=== PATIENT | male | born 1945 | race African-American/Black ===

== ENCOUNTER → 2021-07-26 09:35 | Outpatient (CLI) | payer MEDICARE, OTHER, SELFPAY ==
--- NOTE | ~2021-07-26 | CT_ITS ---
EXAMINATION: CT sinus wo con DATE: 07/26/2021 09:51 INDICATION: Chronic sinusitis TECHNIQUE: Computed tomography (CT) of the paranasal sinuses was performed without intravenous contra st. The dose-length product was 273.81 mGy-cm. Automated exposure control and iterative reconstructio n technique were employed. COMPARISON: None FINDINGS: There is extensive mucosal thickening of the frontal, ethmoid, sphenoid and maxillary sinus es. There is occlusion of the ostiomeatal units. Rightward nasal septal deviation. There is mild muco periosteal reaction throughout the sinuses. IMPRESSION: 1. Pansinusitis, likely chronic. Reviewed, dictated and finalized at location B. LE DATABASE ANALYST
== END ==
PROVIDERS: PCP Family Medicine; Visit Provider Otolaryngology
DX: J32.9 Chronic sinusitis, unspecified (principal)
CPT/HCPCS: 70486

== ENCOUNTER 2021-09-11 08:26 | Outpatient (CLI) | payer MEDICARE, OTHER, SELFPAY ==
--- NOTE | 2021-09-11 08:32 | ECG_ITS ---
Measurements Intervals [place] Rate: 59 P: 18 AR: 187 QRS: -41 QRSD: 106 T: 22 QT: 435 QTc: 432 Interpretive Statements SINUS BRADYCARDIA RIGHTWARD AXIS INCOMPLETE RIGHT BUNDLE BRANCH BLOCK NONSPECIFIC T-WAVE ABNORMALITY NO PREVIOUS ECG AVAILABLE FOR COMPARISON Electronically Signed On 09-11-2021 9:05:07 CDT by Judah Wu M.D.
[2021-09-11 09:05] LABS: Anion Gap 5 mmol/L (8-16); Blood Urea Nitrogen 14 mg/dL (9-20); Calcium 9.1 mg/dL (8.4-10.2); Carbon Dioxide 29 mmol/L (22-30); Chloride 108 mmol/L (98-107); Estimated Glomerular Filt Rate > 60; Glucose 127 mg/dL (65-110); Potassium 3.5 mmol/L (3.4-5.0); Sodium 142 mmol/L (137-145)
== END 2021-09-11 08:27 | disposition home or self-care (01) ==
PROVIDERS: Anesthesiology; PCP Family Medicine; Visit Provider Otolaryngology
DX: E11.9 Type 2 diabetes mellitus without complications (principal); I10 Essential (primary) hypertension; Z01.818 Encounter for other preprocedural examination; I45.10 Unspecified right bundle-branch block
CPT/HCPCS: 36415; 80048; 93005

== ENCOUNTER 2021-09-24 01:53 | Day surgery (SDC) | payer MEDICARE, OTHER, SELFPAY ==
[2021-09-10 09:23] VITALS: BMI 27.4
--- NOTE | 2021-09-10 09:30 | PC.NURSE ---
Report to the Outpatient Waiting Room, entrance under the green pavilion located off [facility], at time _0600_ on date _09/24/21_. OR Time: _0800_. - You and your visitor will be asked a series of questions to screen for COVID 19 for your protection. - A mask is required within the hospital. One visitor will be allowed to accompany the patient into the hospital. Patients visitor will be instructed to remain with patient at all times or leave the building. We will allow the visitor to come back to the postoperative area when patient is ready. Preoperative COVID Testing Requirements: NONE Patients may have clear liquids (water, carbonated beverages, clear teas, apple juice) until 3 hours prior to surgery (0500 AM) with a maximum of 20 ounces. - No food from midnight until time of surgery Take the following medications with a SIP of water the morning of surgery: _AMLODIPINE, METOPROLOL, NASAL SPRAY_ Medications to discontinue per physician __N/A_. Date to take last dose__ Please no make-up, nail sinhala, hairspray, perfume, deodorant, or body powder the day of surgery. No jewelry (including any body piercings) or valuables the day of surgery, leave them at home. Please take a shower or bath the night before, or the morning of, surgery with an antibacterial soap. Wear comfortable, loose fitting clothing. - Jewelry must be removed prior to entering the operating room. Rings and piercings that are not removed may be cut off. - The hospital will not accept responsibility for valuables. - Please leave all valuables, including medications, at home the day of surgery. If you are going home after surgery, a licensed refrigerated national truck driver must drive you home. - NO public transportation without another adult. - We recommend that an adult stay with you for 24 hours following discharge. - We also recommend that you do not drive, make important decision, drink alcoholic beverages, or take any drugs that were not prescribed by your health care provider for at least 24 hours after your discharge time. Follow any additional instructions given to you from your surgeon. Telephone instructions given to __PT__and asked if any additional questions and then verbalized understanding. Patient advised to call surgeon office or pre surgery nurse liaison [phone] if any additional questions.
[2021-09-24] VITALS (9 sets, daily range): BP systolic 155–197; BP diastolic 72–101; PULSE 56–88; RESP 10–20; TEMP 36.1–36.7; O2SAT 98–100
--- NOTE | 2021-09-24 06:59 | WPDANESEPPF ---
Anes - Initial Pre Proc Eval Procedure: Operation Date: 09/24/21 08:00 Proposed Procedures p Fusion Guided Bilateral Frontal Sinusotomy, Bilateral Ethmoidectomy, Bilateral Sphenoidotomy, Bilateral Maxillary Antrostomy, Bilateral Turbinate Reduction, - Peter Bangura MD s Septoplasty - Peter Bangura MD Date/Time: 09/24/21 06:59 Surgeon: Peter Bangura MD Pre Op Diagnosis: chronic sinusitis, nasal polyps Patient Data Age: 75 Gender: M Height: 1.73 m Weight: 81.81 kg Allergies Allergy/AdvReac Type Severity Reaction Status Date / Time No Known Allergies Allergy Mild Unverified 09/10/21 09:17 Home Medications Medication Instructions Recorded Confirmed Type azelastine 137 mcg (0.1 %) nasal 2 spray INTRANASAL Q12H #90 ml 09/05/20 09/10/21 Rx spray aerosol finasteride 5 mg tablet 5 mg PO QAM 09/05/20 09/10/21 History fluticasone propionate 50 1 spray NASAL BID #54.6 ml 09/05/20 09/10/21 Rx mcg/actuation nasal spray,suspension metformin 500 mg tablet,extended 500 mg PO BID #180 tablet 05/16/21 09/10/21 Rx release 24 hr amlodipine 10 mg PO QAM 09/10/21 09/10/21 History atorvastatin 20 mg tablet 20 mg PO QAM #90 tablet 09/10/21 Rx metoprolol succinate 100 mg 100 mg PO QAM #90 tablet 09/10/21 Rx tablet,extended release 24 hr Patient hx anesthesia problems: none Family hx anesthesia problems: none Results Review: All pre-operative results and documents have been reviewed as part of the pre-operative evaluation. 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 Hyperlipidemia Polyp of colon Tinnitus of left ear Family History Family History (Updated 12/30/18 @ 11:11 by DOCTOR UNKNOWN) Father Patient's father is , Onset Age: 70 Family history of cardiovascular disease Family history of malignant neoplasm Sibling Patient's brother is , Onset Age: 69 Acute myocardial infarction Mother Family history of kidney disease, Onset Age: 79 Other Hypertension Social History Social History Smoking status: Never smoker Second hand tobacco smoke exposure: No Alcohol intake: current Alcohol use details: STATES VERY SELDOM 4-5 DRINKS/MONTH Substance use: never Substance use type: does not use Living arrangements: with family Spiritual care concerns: No Anes - Eval Final PreProcedure Day of Procedure 09/24/21 06:59 Patient weight: overweight Heart: regular rate and rhythm Lungs: clear to auscultation and normal air movement Airway: Mallampati scale class II Neurological: alert and oriented Last oral intake: >/= 8 hours ASA classification: III Emergent: no Anesthetic plan: proceed Anesthesia type and monitoring: general ETT and standard monitoring Results Review: All pre-operative results and documents have been reviewed as part of the pre-operative evaluation. Informed Consent: The patient's anesthetic plan and its attendant risks and benefits were discussed with the patient/family/POA. Questions were solicited and answers provided to the satisfaction of the patient/family/POA.
[2021-09-24] MEDS: ACETAMINOPHEN 500 MG TABLET 1000 MG PO (07:10)
[2021-09-24] MEDS: LACTATED RINGERS 1,000 ML 30 ML IV CONT ×2 (07:20→09:40)
--- NOTE | 2021-09-24 07:39 | PM.IMHP ---
H&P: HPI History of Present Illness Date/Time: 09/24/21 07:39 Chief Complaint: nasal polyps Narrative: chronic nasal polyposis Review of Systems Review of Systems: All systems reviewed & are unremarkable except as noted in HPI and below [facility] Past Medical History Medical History Abnormal fasting glucose Acute bronchitis Acute non-recurrent maxillary sinusitis BMI 27.0-27.9,adult Controlled diabetes mellitus Essential (primary) hypertension Eustachian tube dysfunction Exposure to COVID-19 virus History of double vision (10/01/20) acute double vision right eye secondary to 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 Hyperlipidemia Polyp of colon Tinnitus of left ear Family History Family History Father Patient's father is , Onset Age: 70 Family history of cardiovascular disease Family history of malignant neoplasm Sibling Patient's brother is , Onset Age: 69 Acute myocardial infarction Mother Family history of kidney disease, Onset Age: 79 Other Hypertension Social History Social History Smoking status: Never smoker Second hand tobacco smoke exposure: No Alcohol intake: current Alcohol use details: STATES VERY SELDOM 4-5 DRINKS/MONTH Substance use: never Substance use type: does not use Living arrangements: with family Spiritual care concerns: No Meds Home Medications and Allergies Home Medications Medication Instructions Recorded Confirmed Type azelastine 137 mcg (0.1 %) nasal 2 spray INTRANASAL Q12H #90 ml 09/05/20 09/10/21 Rx spray aerosol finasteride 5 mg tablet 5 mg PO QAM 09/05/20 09/10/21 History fluticasone propionate 50 1 spray NASAL BID #54.6 ml 09/05/20 09/10/21 Rx mcg/actuation nasal spray,suspension metformin 500 mg tablet,extended 500 mg PO BID #180 tablet 05/16/21 09/10/21 Rx release 24 hr amlodipine 10 mg PO QAM 09/10/21 09/10/21 History atorvastatin 20 mg tablet 20 mg PO QAM #90 tablet 09/10/21 Rx metoprolol succinate 100 mg 100 mg PO QAM #90 tablet 09/10/21 Rx tablet,extended release 24 hr Allergies Allergy/AdvReac Type Severity Reaction Status Date / Time No Known Allergies Allergy Mild Unverified 09/10/21 09:17 Exam Narrative: bilateral polyps, chronic sinusitis, deviated septum Assessment and Plan Assessment and plan (1) Nasal polyps: Code(s): J33.9 - Nasal polyp, unspecified Status: Acute Assessment and Plan: Here for FESS/Septo for chronic sinusitis and nasal polyposis. r/b/a reviewed. Pt understands and agrees to proceed. Refer to outpt H&P for full details.
[2021-09-24 07:43] LABS: Glucose Point of Care 115 mg/dl (65-105)
[2021-09-24] MEDS: ceFAZolin 2 GM/D5W 50 ML 2 GM/50 ML BAG IVPB (07:59)
--- NOTE | 2021-09-24 08:05 | WPDHPUPDATE1 ---
History and Physical Update Update Date/Time: 09/24/21 08:05 History and Physical has been reviewed, including an updated exam of the patient. There are NO changes in the patient's condition. Risks, benefits, and alternatives have been discussed and questions answered. Patient agrees to proceed with procedure.
[2021-09-24] MEDS: OXYMETAZOLINE HCL 0.05% NAS 15 ML BTL (*BKC) 1 SPRAY NASAL (08:20)
[2021-09-24] MEDS: LIDO 1%/EPINEPHRINE/PF 1:200,000 30 ML VIAL XX (09:32)
--- NOTE | 2021-09-24 09:35 | W.PM.PROC2 ---
Procedure Note - Detailed Date of Procedure 09/24/21 Pre-op Diagnosis chronic sinusitis, nasal polyps Post-op Diagnosis Same Procedure Performed Bilateral frontal sinusotomy, total ethmoidectomy, sphenoidotomy, maxillary antrostomy w/tissue removal, turbinoplasty under image guidance Surgeon Peter Bangura MD Anesthesia General Indications Chronic sinusitis and nasal polyps Findings Significant bilateral nasal polyposis with polyp and mucous within the maxillary sinuses and throughout the ethmoid cavities. Balloon assisted frontal sinusotomy. Septoplasty not required Description of Procedure On the date of procedure the patient was met in the preoperative area and risk and benefits of the procedure reviewed with the patient as documented in the H&P and they elected to proceed with surgery. Patient was brought back to the operating room by the anesthesia team and underwent general endotracheal anesthesia. Once an adequate plane of anesthesia was obtained a timeout was performed to assure the patient identification the patient here to be performed were correct. They were.The patient was then prepped and draped in the normal fashion for endoscopic sinus surgery. The diffusion image guidance system was calibrated and used for the entire case. Afrin-soaked pledgets were placed in the nasal cavities bilaterally. The entire case was performed under endoscopic visualization. Nasal endoscopy was performed at the beginning of the case. 1% lidocaine with 1:100,000 epinephrine was then injected into the root of the middle turbinate and lateral nasal wall. Attention was first directed towards the right side. The middle turbinate was medialized and the osteomeatal complex was identified with a luis manuel probe. Using a 90 degree backbiter, the uncinate process was reflected anteriorly and removed using a combination of sharp and powered dissection. The maxillary antrostomy was then created and widened by identifying the natural ostia and opening the sinus with straight gerard-cut forceps, backbiter, and microdebrider. Polyp tissue encountered was removed with microdebrider. Rad-40 debrider was required to fully remove diseased tissue from the maxillary sinus. Continuing with the microdebrider, the anterior ethmoid bulla was opened. Careful dissection was carried out posteriorly, through the basal lamella and posterior ethmoid cells until the sphenoid rostrum was identified. A Diana suction bluntly identified the sphenoid os and the opening was widened with microdebrider and mushroom punch to 5mm. Using an image guided curved suction as well as J-curette, the posterior most ethmoid cell was identified and the ethmoids were bluntly fractured and dissected from posterior to anterior along the base of the skull. The remaining bone fragments were removed with appropriate curved instruments and microdebrider.? The frontal sinus was then opened with balloon assistance due to osteitic bone and narrow recess. No polyp or purulent fluid encountered. Next, the left maxillary antrostomy, ethmoidectomy and sphenoidotomy were carried out in identical fashion with findings of gross polyp disease throughout. Next, the left frontal sinus was identified and entered using image guided balloon dilation, suction, seeker and frontal sinus angled biting instruments.? No clinical evidence of CSF throughout the case.? With all sinuses opened and no remaining polyp disease appreciated, nasopore packing was placed in the ethmoid acvities bilaterally. Hemostasis was ensured. Lastly, the bilateral inferior turbinates were reduced submucosally using 2mm microdebrider and then outfractured with a sayer elevator. This significantly opened the airway. Oneal splints were then placed to secure the septum in the midline.? At this point, the procedure was concluded. Care the patient was transferred back to the anesthesia team and the patient was awoke in the operating room and transferred back to the PACU in replaced by [facility]
[2021-09-24 09:48] LABS: Glucose Point of Care 110 mg/dl (65-105)
[2021-09-24] MEDS: fentaNYL CITRATE INJ (*CRX) 100 MCG/2 ML VIAL 25 MCG IV PUSH ×2 (10:12→10:40)
--- NOTE | 2021-09-24 10:14 | SUR.PHASEI ---
1013: Simple mask removed.
[2021-09-24] MEDS: hydrALAZINE HCL 20 MG/ML VIAL 10 MG IV PUSH (10:25)
[2021-09-24] MEDS: oxyCODONE HCL (*CRX) 2.5 MG TAB IR PO (11:36)
== END 2021-09-24 12:13 | disposition home or self-care (01) ==
PROVIDERS: PCP Family Medicine; Visit Provider Otolaryngology
PROC: (CPT 31267; principal; 2021-09-24 08:00)
DX: J32.9 Chronic sinusitis, unspecified (principal); J33.9 Nasal polyp, unspecified; J33.8 Other polyp of sinus; I10 Essential (primary) hypertension; E11.9 Type 2 diabetes mellitus without complications; E78.5 Hyperlipidemia, unspecified; Z79.84 Long term (current) use of oral hypoglycemic drugs
CPT/HCPCS: 31267; 31257; 30140; 61782; 36415; 80048; 82948; 93005; A9270; C1726; J0330; J0360; J0690; J1100; J2405; J2704; J3010; J7030; J7040; J7120

== ENCOUNTER 2022-08-09 11:04 | Outpatient (CLI) | payer MEDICARE, OTHER, SELFPAY ==
[2022-08-09 11:19] LABS: Eosinophils Absolute Auto 0.2 K/mm3 (0-0.3); Eosinophils Percent Auto 5.8 % (0-4.4); Hematocrit 40.7 % (42.0-52.0); Hemoglobin 13.5 g/dL (14.0-18.0); Immature Granulocyte Absolute 0.01 K/mm3 (0.00-0.031); Immature Granulocyte Percent A 0.3 % (0-0.5); Lymphocytes Absolute Auto 1.29 K/mm3 (0.9-3.2); Lymphocytes Percent Auto 32.5 % (18.3-44.2); Mean Corpuscular HGB Conc 33.2 g/dl (32-36); Mean Corpuscular Hemoglobin 28.8 pg (26-34); Mean Platelet Volume 10.9 fl (7.4-10.4); Monocytes Absolute Auto 0.5 K/mm3 (0.1-0.6); Monocytes Percent Auto 12.1 % (2.6-8.5); Neutrophils Absolute Auto 1.9 K/mm3 (1.3-6.7); Neutrophils Percent Auto 48.3 % (45.5-73.1); Platelet Count Result 184 k/mm3 (150-375); Red Blood Count 4.68 M/mm3 (4.6-6.20); Red Cell Distribution Width 13.3 % (11.5-14.5)
[2022-08-09 15:42] LABS: Iron 109 ug/dL (49-181)
[2022-08-09 15:52] LABS: Alanine Aminotransferase 25 U/L (6-50); Albumin Level 4.6 g/dL (3.5-5.1); Alkaline Phosphatase 70 U/L (38-126); Anion Gap 8 mmol/L (8-16); Aspartate Amino Transferase 25 U/L (17-59); Bilirubin,Total 0.7 mg/dL (0.2-1.3); Blood Urea Nitrogen 26 mg/dL (9-20); Calcium 9.3 mg/dL (8.4-10.2); Carbon Dioxide 28 mmol/L (22-30); Chloride 106 mmol/L (98-107); Estimated Glomerular Filt Rate > 60; Glucose 122 mg/dL (65-110); Lactate Dehydrogenase 191 U/L (120-246); Percent Iron Saturation 38 % (20-50); Potassium 3.3 mmol/L (3.4-5.0); Sodium 142 mmol/L (137-145)
[2022-08-09 16:23] LABS: Thyroid Stimulating Hormone 0.709 uIU/mL (0.465-4.680)
[2022-08-09 17:00] LABS: Folic Acid 7.5 ng/mL (2.76->20)
[2022-08-14 11:02] LABS: Methylmalonic Acid 132 nmol/L (87-318)
== END 2022-08-09 11:05 | disposition home or self-care (01) ==
LOC: ANHLAB 11:06
PROVIDERS: PCP Family Medicine; Visit Provider Internal Medicine Hematology & Oncology
DX: D64.9 Anemia, unspecified (principal)
CPT/HCPCS: 36415; 80053; 82607; 82728; 82746; 83540; 83550; 83615; 83921; 84443; 85025

== ENCOUNTER 2023-07-02 09:38 | Outpatient (CLI) | payer MEDICARE, OTHER, SELFPAY ==
[2023-07-02 10:15] LABS: Alanine Aminotransferase 17 U/L (6-50); Albumin Level 4.1 g/dL (3.5-5.1); Alkaline Phosphatase 54 U/L (38-126); Anion Gap 6 mmol/L (8-16); Aspartate Amino Transferase 24 U/L (17-59); Bilirubin,Total 0.7 mg/dL (0.2-1.3); Blood Urea Nitrogen 18 mg/dL (9-20); Calcium 9.2 mg/dL (8.4-10.2); Carbon Dioxide 28 mmol/L (22-30); Chloride 105 mmol/L (98-107); Cholesterol 208 mg/dL (0-200); Estimated Glomerular Filt Rate > 60; Glucose 112 mg/dL (65-110); HDL Direct 69 mg/dL; Potassium 3.5 mmol/L (3.4-5.0); Sodium 139 mmol/L (137-145); Triglycerides 83 mg/dL (<150)
[2023-07-02 10:26] LABS: LDL Cholesterol Direct 104 mg/dL
[2023-07-02 10:43] LABS: Appearance Urine Cloudy (Clear); Bacteria Urine None Seen /hpf; Bilirubin Urine Negative (Negative); Blood Urine Negative (Negative); Color Urine Yellow (Yellow); Glucose Urine UA Negative (Negative); Ketones Urine Negative (Negative); Leukocyte Esterase Ur 2+ LEU/UL (NEGATIVE); Nitrate Urine Negative (Negative); Non Pathogenic Casts 0-2; Protein Urine 1+ mg/dL (Negative); RBC Urine 0-2 /hpf (0-2); Specific Grav Ur 1.018 (1.001-1.035); Squamous Epithelial Cell Urine None seen /hpf (Few); pH Urine 7.5 (5.0-9.0)
[2023-07-02 10:51] LABS: MALB Creatinine Ratio 88.7 mg/g (0-30); Microalbumin Urine Random 113.5 mg/L (0-16.7)
[2023-07-02 10:57] LABS: Add Urine Microscopic? YES
[2023-07-02 10:59] LABS: Hemoglobin A1C 6.6 % (<5.7)
== END 2023-07-02 09:39 | disposition home or self-care (01) ==
LOC: ANHLAB 09:42
PROVIDERS: PCP Family Medicine; Visit Provider Family Medicine
DX: E11.9 Type 2 diabetes mellitus without complications (principal); E78.2 Mixed hyperlipidemia
CPT/HCPCS: 36415; 80048; 80061; 80076; 81001; 82043; 83036; 84443

== ENCOUNTER 2024-08-03 11:07 | Outpatient (CLI) | payer MEDICARE, OTHER, SELFPAY ==
[2024-08-03 11:42] LABS: Basophils Percent Auto 0.9 % (0.2-1.2); Eosinophils Absolute Auto 0.1 K/mm3 (0-0.3); Eosinophils Percent Auto 2.7 % (0-4.4); Hematocrit 38.7 % (42.0-52.0); Hemoglobin 12.7 g/dL (14.0-18.0); Immature Granulocyte Absolute 0.02 K/mm3 (0.00-0.031); Immature Granulocyte Percent A 0.6 % (0-0.5); Lymphocytes Absolute Auto 1.21 K/mm3 (0.9-3.2); Lymphocytes Percent Auto 36.2 % (18.3-44.2); Mean Corpuscular HGB Conc 32.8 g/dl (32-36); Mean Corpuscular Hemoglobin 28.8 pg (26-34); Mean Corpuscular Volume 87.8 fl (80-100); Mean Platelet Volume 10.8 fl (7.4-10.4); Monocytes Absolute Auto 0.5 K/mm3 (0.1-0.6); Monocytes Percent Auto 13.8 % (2.6-8.5); Neutrophils Absolute Auto 1.5 K/mm3 (1.3-6.7); Neutrophils Percent Auto 45.8 % (45.5-73.1); Platelet Count Result 185 k/mm3 (150-375); Red Blood Count 4.41 M/mm3 (4.6-6.20); Red Cell Distribution Width 13.5 % (11.5-14.5); White Blood Count 3.3 K/mm3 (4.5-10.0)
[2024-08-03 11:47] LABS: Alanine Aminotransferase 18 U/L (6-50); Albumin Level 4.5 g/dL (3.5-5.1); Alkaline Phosphatase 64 U/L (38-126); Anion Gap 8 mmol/L (4-12); Aspartate Amino Transferase 26 U/L (17-59); Bilirubin,Total 0.6 mg/dL (0.2-1.3); Blood Urea Nitrogen 17 mg/dL (9-20); Calcium 9.4 mg/dL (8.4-10.2); Carbon Dioxide 29 mmol/L (22-30); Chloride 105 mmol/L (98-107); Cholesterol 182 mg/dL (0-200); Estimated Glomerular Filt Rate > 60; Glucose 112 mg/dL (65-110); HDL Direct 77 mg/dL; Potassium 3.8 mmol/L (3.4-5.0); Sodium 142 mmol/L (137-145); Triglycerides 86 mg/dL (<150)
[2024-08-03 11:50] LABS: Creatinine Urine 37.7 mg/dL
[2024-08-03 11:52] LABS: MALB Creatinine Ratio 186.5 mg/g (0-30); Microalbumin Urine Random 70.3 mg/L (0-16.7)
[2024-08-03 11:59] LABS: LDL Cholesterol Direct 69 mg/dL
[2024-08-03 13:12] LABS: Hemoglobin A1C 6.2 % (<5.7)
== END 2024-08-03 11:08 | disposition home or self-care (01) ==
LOC: ANHLAB 11:11
PROVIDERS: PCP Family Medicine; Visit Provider Nurse Practitioner Family
DX: E78.2 Mixed hyperlipidemia (principal); E11.9 Type 2 diabetes mellitus without complications; D64.9 Anemia, unspecified; I10 Essential (primary) hypertension
CPT/HCPCS: 36415; 80048; 80061; 80076; 82043; 83036; 85025; 93005